=== PATIENT | male | born 1965 | race African-American/Black ===

== ENCOUNTER 2020-01-30 15:48 | Emergency (ER) | payer SELFPAY ==
[~2020-01-30] VITALS: Ht 172.7 cm; Wt 68.0 kg
[2020-01-30] MEDS ORDERED: SODIUM CHLORIDE 0.9% 1,000 ML IV ONE (16:04)
[2020-01-30 17:51] LABS: HEMATOCRIT. 45.8 % (42.0-52.0); HEMOGLOBIN. 15.6 g/dL (14.0-18.0); MEAN CORPUSCULAR HEMOGLOBIN 31.3 pg (28.0-32.0); MEAN CORPUSCULAR VOLUME 92.3 fL (80.0-94.0); MEAN PLATELET VOLUME 7.1 fl (7.4-10.4); PLATELET 458 x1000/uL (130-400); RED BLOOD CELL COUNT 4.97 mill/uL (4.7-6.1); RED CELL DISTRIBUTION WIDTH 14.9 % (11.6-14.6)
[2020-01-30 17:57] LABS: CHLORIDE 105 mEq/L (98-107)
[2020-01-30 18:02] LABS: ETHANOL BLOOD < 10 mg/dL
[2020-01-30 18:06] LABS: CREATINE KINASE 215 IU/L (39-308)
[2020-01-30 18:09] LABS: CREATINE KINASE MB FRACTION 1.2 ng/mL (0.5-3.6)
[2020-01-30 18:13] LABS: PLATELET ESTIMATE INCREASED
[2020-01-30 18:34] LABS: CLARITY URINE CLEAR (CLEAR); COLOR URINE DARK YELLOW (YELLOW); KETONES URINE TRACE (NEGATIVE); LEUKOCYTE ESTERASE URINE 3+ (NEGATIVE); NITRITE URINE NEGATIVE (NEGATIVE); OCCULT BLOOD URINE NEGATIVE (NEGATIVE); PH URINE 6.5 (4.5-8.0); PROTEIN URINE 1+ (NEGATIVE)
[2020-01-30 18:49] LABS: *AMPHETAMINES SCREEN URINE NEGATIVE (NEGATIVE)
[2020-01-30 18:50] LABS: *BARBITURATES SCREEN URINE NEGATIVE (NEGATIVE); *BENZODIAZEPINES SCREEN URINE NEGATIVE (NEGATIVE); *COCAINE SCREEN URINE PRESUMTIVE POSITIVE (NEGATIVE); CANNABINOID URINE SCREEN NEGATIVE (NEGATIVE); METHADONE URINE SCREEN NEGATIVE (NEGATIVE); OPIATES URINE SCREEN NEGATIVE (NEGATIVE); PHENCYCLIDINE URINE SCREEN PRESUMTIVE POSITIVE (NEGATIVE)
[2020-01-31] MEDS ORDERED: CEFTRIAXONE SODIUM 250 MG/VIAL IM NR (00:30)
[2020-01-31 02:00] VITALS: BP 150/97
== END 2020-01-31 02:40 | disposition home or self-care (01) ==
LOC: ER 15:48 → EDBD 15:48 → ER 01-31 02:40
DX: F19.10 Other psychoactive substance abuse, uncomplicated (principal); T65.91XA Toxic effect of unspecified substance, accidental (unintentional), initial encounter; Y92.89 Other specified places as the place of occurrence of the external cause
CPT/HCPCS: 36415; 70450; 71045; 80053; 80305; 80307; 80320; 80329; 81003; 82550; 82553; 84484; 85025; 87086; 93005; 96360; 96361; 99285; J7030; G0480

== ENCOUNTER 2020-02-06 18:44 | Emergency (ER) | payer SELFPAY ==
[~2020-02-06] VITALS: Ht 175.3 cm; Wt 65.0 kg
[2020-02-06] MEDS ORDERED: HYDROCODONE/ACETAMINOPHEN 5/325MG TABLET PO ONE (19:30)
[2020-02-06 21:42] VITALS: BP 111/71
== END 2020-02-06 21:45 | disposition home or self-care (01) ==
LOC: ER 18:44
DX: M25.561 Pain in right knee (principal); R56.9 Unspecified convulsions; Z88.8 Allergy status to other drugs, medicaments and biological substances; Z98.890 Other specified postprocedural states
CPT/HCPCS: 73562; 99283; L1830

== ENCOUNTER 2025-02-01 20:30 | Emergency (ER) | payer MEDICAID ==
[~2025-02-01] VITALS: Ht 175.3 cm; Wt 59.0 kg
[2025-02-01 20:31] VITALS: BP 142/95; PULSE 77; RESP 20; TEMP 37; O2SAT 97; O2SAT 98
[2025-02-01 21:13] LABS: BASOPHILS % 0.7 % (0.0-2.0); EOSINOPHILS % 2.6 % (0.0-5.0); HEMATOCRIT. 48.7 % (42.0-52.0); HEMOGLOBIN. 16.3 g/dL (14.0-18.0); LYMPHOCYTES % 20.2 % (20.0-50.0); MEAN PLATELET VOLUME 7.7 fl (7.4-10.4); MONOCYTES % 7.6 % (2.0-8.0); NEUTROPHILS % 68.9 % (40.0-76.0); PLATELET 501 x1000/uL (130-400); RED BLOOD CELL COUNT 5.26 mill/uL (4.7-6.1); RED CELL DISTRIBUTION WIDTH 14.8 % (11.6-14.6)
[2025-02-01 21:25] LABS: CREATININE 1.1 mg/dL (0.6-1.3); TROPONIN I HIGH SENSITIVITY < 4 ng/L (3.0-53); UREA NITROGEN BLOOD 16 mg/dL (9-23)
[2025-02-01] MEDS ORDERED: ACETAMINOPHEN 500MG TABLET PO ONE (21:30)
== END 2025-02-01 23:00 | disposition left against medical advice (07) ==
LOC: ER 20:30
DX: R07.2 Precordial pain (principal); Z87.891 Personal history of nicotine dependence
CPT/HCPCS: 36415; 71045; 80048; 84484; 85025; 93005; 99285